=== PATIENT | male | born 1955 | race Caucasian/White ===

== ENCOUNTER 2017-06-06 09:46 | Observation (INO) | payer OTHER ==
[~2017-06-06] VITALS: Ht 182.9 cm; Wt 87.2 kg
--- NOTE | ~2017-06-06 | D ---
[facility] [place] [address] DISCHARGE SUMMARY Name: VIRGIE QUILES Room #: 216-P [facility]#: [id number] Admission: 06/06/17 Attend Phys: Hermelindo Hester MD Discharge: Date of : 59 Report #: [id number] THIS REPORT FOR: //name// CC: Taco Hester Virgie Henry DATE OF SERVICE: 06/07/2017 FINAL DIAGNOSES: 1. Unstable angina, status post coronary angioplasty. 2. Hypercholesterolemia. 3. Bradycardia. 4. Chronic renal insufficiency. 5. History of renal cell carcinoma status post nephrectomy. HOSPITAL COURSE: Please see the original H and P for full details. The patient presented with unstable angina. He underwent an elective cardiac catheterization, revealing a severe stenosis in the proximal LAD. Coronary angioplasty was performed, with placement of a drug-eluting stent. He has remained hemodynamically stable overnight. Today, his vital signs are stable. His right groin area is stable with no signs of hematoma. We had a discussion regarding the importance of maintenance with dual antiplatelet therapy. He is prescribed aspirin and Effient once a day. The plan is to have them follow up in the office for an echocardiogram to evaluate his LV systolic function. MEDICATIONS: Effient 10 mg daily, aspirin 81 mg daily, Lipitor 40 mg daily. <ELECTRONICALLY SIGNED> By: Hermelindo Hester MD 06/07/17 0914 [id number] MD chelo Najera
--- NOTE | ~2017-06-06 | CATHLAB ---
[facility] [place] [address] INVASIVE PROCEDURE REPORT Name: ETTAVIRGIE Spencer Room #: 216-P [facility] [place] .R.#: [id number] Admission: 06/06/17 Attend Phys: Hermelindo Hester MD Discharge: Date of : 59 Date of Service: 06/06/17 1639 Report #: [id number] THIS REPORT FOR: //name// APPROVED REPORT Patient Details Patient Status: In-Patient Room #: The patient is a 62 year-old male Event Personnel Hermelindo Hester [employer]er, Ada Coulter RN RN, Ara Napier Aloi, Christine Monitor, Shaan Nielson Monitor Procedures Performed Left Heart Cath w/or w/o Coronaries [id number] [facility] Indication Dyspnea, Unstable angina Risk Factors Family History, Hypercholesterolemia Procedure Narrative The Right Groin^ was infiltrated with 1% Lidocaine subcutaneous anesthesia. A PINNACLE 6FR Sheath #[id number] sheath was inserted into the RFA^. Coronary angiography was performed using coronary diagnostic catheters. The right coronary system was accessed and visualized with a JR4 catheter. The left coronary system was accessed and visualized with a JL4 catheter. The left ventricle was accessed and visualized with a PIGTAIL catheter. Left ventricular/Aortic Valve gradient assessed via catheter pullback. Left ventriculogram was performed in 30 degree projection. Closure device was deployed with a 6 Fr MYNXGRIP 6/7F #[id number]. The patient tolerated the procedure well and there were no complications associated with the procedure. There was no hematoma. Intraoperative Conscious Sedation Sedation start time: 13:34 Case end Time: 14:05 Fentanyl 25 mcg Versed 1 mg Fluoro Time: 7.35 minutes Dose: 1196 mGy Contrast Type and Amount: Visipaque 140 ml [facility] [place] [address] INVASIVE PROCEDURE REPORT Name: VIRGIE QUILES Room #: 216-P [facility] [place] ..#: [id number] Admission: 06/06/17 Attend Phys: Hermelindo Hester MD Discharge: Date of : 59 Date of Service: 06/06/17 1639 Report #: [id number] Coronary Angiography The patient's coronary anatomy is right dominant. Diagnostic Cath Left Main No flow-limiting lesions. LAD Severe stenosis in the proximal LAD segment, at least 95%. The remaining segments of the LAD have no flow-limiting lesions. Circumflex Supplies one moderate size caliber obtuse marginal artery. OM1 Patent with no flow-limiting lesions. Right Coronary Dominant vessel, with no flow-limiting lesions. The distal RCA supplies multiple posterior lateral branches that extend out into the lateral wall. R PDA No flow-limiting lesions. RPLV No flow-limiting lesions. Left Ventriculography Left Ventriculography was not performed. An LVEDP was measured but no ventriculogram in view of an elevated creatinine level. Hemodynamics The aortic pressure is 140/85 mmHg with a mean of 77 mmHg. The left ventricular pressure is 154/14 mmHg with a mean of mmHg. The left ventricular end diastolic pressure is 25 mmHg. PCI Technique Lesion Anticoagulation was achieved with Angiomax. Percutaneous coronary intervention was performed on the proximal left anterior descending artery segment. A VISTA 6FR JL4 #[id number] Guide Catheter was used to engage the LCA ostium. A Luge Wire .014 x 182CM #[id number] Interventional Guidewire was used to cross the lesion. BALLOON DILATION A Balloon catheter TREK RX 2.5 X 12 #[id number] was inserted and inflated up to 8.00atm for 21seconds. Additional Inflation: 12.00atm for 28seconds. STENT DEPLOYMENT A drug-eluting stent RESOLUTE RX 3.0 X 18 #[id number] was inserted and inflated up to 18.00atm for 22seconds. Additional Inflation: 18.00atm for 19seconds. POST STENT DEPLOYMENT BALLOON DILATION [address] [address] INVASIVE PROCEDURE REPORT Name: VIRGIE QUILES Room #: 216-P [facility] [place] ..#: [id number] Admission: 06/06/17 Attend Phys: Hermelindo Hester MD Discharge: Date of : 59 Date of Service: 06/06/17 1639 Report #: [id number] A Balloon catheter TREK NC RX 3.0 X 15 #[id number] was inserted and inflated up to 18.00atm for 19seconds. Final angiography reveals 0 % stenosis with TONEY 3 flow. COMMENTS Successful insertion of a drug-eluting stent into the proximal LAD stenosis. Conclusion 1. Successful insertion of a drug-eluting stent into the proximal LAD stenosis. 2. Recommend dual antiplatelet therapy for at least one year. 3. Aggressive risk factor management is recommended. Recommendations Daily ASA with Plavix for at least one year Aggressive Medical Therapy <ELECTRONICALLY SIGNED> By: Hermelindo Hester MD 06/06/17 1639 1639 1639 Hermelindo Hester MD /INF
--- NOTE | ~2017-06-06 | EKG ---
[address] [place] [place] [address] ELECTROCARDIOGRAM REPORT Name: VIRGIE QUILES Room #: 216-[facility] M.R.#: [id number] Admission: 06/06/17 Attend Phys: Hermelindo Hester MD Discharge: 06/07/17 Date of : 59 Report #: [id number] THIS REPORT FOR: //name// [facility] Test Date: 2017-06-07 Test Time: 06:26:17 Pat Name: VIRGIE QUILES Department: Room: 216 Gender: M Plug Wirer: FAIZA : 1955 Requested By: Hermelindo Hester Order Number: [id number] MD: Deon Omalley Measurements Intervals [place] Rate: 55 P: 26 MD: 144 QRS: -58 QRSD: 103 T: 56 QT: 422 QTc: 404 Interpretive Statements Sinus rhythm Left anterior fascicular block Borderline low voltage, extremity leads No previous ECG available for comparison Electronically Signed On 06-11-2017 21:48:42 CDT by Deon Omalley [email or web address] <ELECTRONICALLY SIGNED> By: Deon Omalley MD 06/11/17 2148 5 5 Deon Omalley MD /LOLA
--- NOTE | ~2017-06-06 | EKG ---
[address] [place] [employer] [place] [address] ELECTROCARDIOGRAM REPORT Name: VIRGIE QUILES Room #: 216-P [facility]..#: [id number] Admission: 06/06/17 Attend Phys: Hermelindo Hester MD Discharge: 06/07/17 Date of : 59 Report #: [id number] THIS REPORT FOR: //name// [facility] Test Date: 2017-06-06 Test Time: 16:41:02 Pat Name: VIRGIE QUILES Department: Room: [facility] Gender: M Auto Locator: Johanna YANES : 1955 Requested By: Hermelindo Hester Order Number: [id number] MD: Deon Omalley Measurements Intervals [place] Rate: 54 P: 25 SD: 150 QRS: -69 QRSD: 102 T: 82 QT: 380 QTc: 361 Interpretive Statements Sinus rhythm Left anterior fascicular block Borderline T abnormalities, lateral leads No previous ECG available for comparison Electronically Signed On 06-11-2017 21:43:44 CDT by Deon Omalley [email or web address] <ELECTRONICALLY SIGNED> By: Deon Omalley MD 06/11/17 2143 40 40 Deon Omalley MD /LOLA
[2017-06-06 10:14] VITALS: BP 124/80
[2017-06-06 10:30] LABS: CALCIUM 9.5 mg/dL (8.5-10.1); CREATININE 1.5 mg/dL (0.7-1.3); POTASSIUM 3.6 mmol/L (3.5-5.1)
[2017-06-06] MEDS ORDERED: SIMVASTATIN40 MG PO (10:37)
[2017-06-06] MEDS ORDERED: ASPIR 8181 MG PO (10:37)
[2017-06-06] MEDS ORDERED: RESTASIS1 EACH OPHTHALMIC (10:37)
[2017-06-06 14:45] VITALS: BP 129/90
[2017-06-06 19:54] VITALS: BP 121/75
[2017-06-07 03:44] LABS: HEMATOCRIT 40.9 % (42.0-52.0); MCH 30.5 pg (26.0-34.0); MCHC 34.3 g/dL (28.0-37.0); MCV 89.1 fL (80.0-100.0); RBC 4.59 mil/uL (4.50-6.00); RDW 13.2 % (10.5-14.5); WBC 6.6 thou/uL (4.0-11.0)
[2017-06-07 04:02] LABS: ANION GAP 5 mmol/L (7-16); BUN 17 mg/dL (7-18); CALCIUM 8.7 mg/dL (8.5-10.1); CHLORIDE 105 mmol/L (98-107); CO2 29 mmol/L (21-32); CREATININE 1.5 mg/dL (0.7-1.3); GLUCOSE 89 mg/dL (74-106); POTASSIUM 4.3 mmol/L (3.5-5.1); SODIUM 139 mmol/L (136-145); TROPONIN-I < 0.04 ng/mL (<0.04-0.07)
[2017-06-07 04:14] VITALS: BP 122/73
[2017-06-07 07:37] VITALS: BP 137/93
[2017-06-07] MEDS ORDERED: EFFIENT10 MG PO (07:46)
[2017-06-07] MEDS ORDERED: ATORVASTATIN CA40 MG PO (07:46)
[2017-06-07] MEDS ORDERED: ASPIRIN325 PO (07:47)
[2017-06-07 08:59] VITALS: BP 137/93
[2017-06-07 10:28] VITALS: BP 137/93
== END 2017-06-07 10:44 | disposition home or self-care (01) ==
LOC: CATH 09:46 → 2N 14:50 → CATH 15:59 → 2N 06-07 10:44
PROVIDERS: Internal Medicine Cardiovascular Disease
DX: I20.0 Unstable angina (principal); E78.00 Pure hypercholesterolemia, unspecified; K21.9 Gastro-esophageal reflux disease without esophagitis; R00.1 Bradycardia, unspecified; N18.9 Chronic kidney disease, unspecified; Z85.528 Personal history of other malignant neoplasm of kidney; Z72.89 Other problems related to lifestyle; Z95.5 Presence of coronary angioplasty implant and graft

== ENCOUNTER → 2017-06-23 | Outpatient (CLI) | payer OTHER ==
[~2017-06-23] MED LIST: ASPIR 8181 MG PO; ASPIRIN325 PO; ATORVASTATIN CA40 MG PO; EFFIENT10 MG PO; RESTASIS1 EACH OPHTHALMIC; SIMVASTATIN40 MG PO
== END ==
LOC: RAD 12:37
DX: R91.8 Other nonspecific abnormal finding of lung field (principal)

== ENCOUNTER → 2017-11-22 | Outpatient (CLI) | payer OTHER | LOC: RAD 15:26 | DX: R06.00 Dyspnea, unspecified (principal) ==

== ENCOUNTER → 2018-02-08 | Outpatient (CLI) | payer OTHER | LOC: RAD 06:23 → EDSTATUS 12:14 → RAD 12:50 | DX: R05 Cough (principal); R13.10 Dysphagia, unspecified; R06.00 Dyspnea, unspecified ==

== ENCOUNTER → 2018-02-12 | Outpatient (CLI) | payer OTHER | LOC: RAD 06:07 → SPEECH 06:07 → RAD 12:10 | DX: R13.10 Dysphagia, unspecified (principal); R47.02 Dysphasia; R06.00 Dyspnea, unspecified ==